=== PATIENT | male | born 1980 | race Caucasian/White ===

== ENCOUNTER 2020-03-11 01:07 | Outpatient (CLI) | payer OTHER, SELFPAY ==
[2020-03-11 16:30] LABS: SARS-CoV-2 RNA PCR Negative
== END 2020-03-11 01:08 | disposition home or self-care (01) ==
LOC: ANHCOVIDDT 01:07
PROVIDERS: Visit Provider Otolaryngology
DX: Z01.812 Encounter for preprocedural laboratory examination (principal); Z20.828 Contact with and (suspected) exposure to other viral communicable diseases
CPT/HCPCS: 87635; C9803; U0003

== ENCOUNTER 2020-03-14 01:41 | Day surgery (SDC) | payer OTHER, SELFPAY ==
[2020-03-02 10:02] VITALS: BMI 25.1
[2020-03-14] VITALS (8 sets, daily range): BP systolic 126–148; BP diastolic 81–96; PULSE 73–106; RESP 11–18; TEMP 36.1–36.6; O2SAT 93–100
[2020-03-14] MEDS: ACETAMINOPHEN 500 MG TABLET 1000 MG PO (06:37)
[2020-03-14] MEDS: LACTATED RINGERS 1,000 ML 30 ML IV CONT ×2 (06:45→09:26)
--- NOTE | 2020-03-14 07:15 | PM.IMHP ---
H&P: HPI History of Present Illness Date/Time: 03/14/20 07:15 Chief complaint: Chronic Sinusits/ Deviated Septum Narrative: Minor Duke is a 39 year old male with history of nasal polyp, deviated septum and sinusitis. Here for surgery Review of Systems Review of Systems: All systems reviewed & are unremarkable except as noted in HPI and below PMFSH Social History Social History Smoking status: Never smoker Alcohol intake: current Drinks per week: 1 Spiritual care concerns: No Meds Home Medications and Allergies Home Medications Medication Instructions Recorded Confirmed Type methylphenidate HCl 20 mg PO BID 03/02/20 03/14/20 History Allergies Allergy/AdvReac Type Severity Reaction Status Date / Time No Known Allergies Allergy Verified 03/14/20 06:26 Exam Narrative: Exam Narrative: Large left nasal polyp, right septal deviation Assessment and Plan Assessment and plan (1) Nasal polyp: Code(s): J33.9 - Nasal polyp, unspecified Status: Acute Assessment and Plan: Left antrochonal polyp, deviated septum and chronic sinusitis. Plan for septoplasty, left maxillary antrostomy, ethmoidectomy, polypectomy, bilateral aneudy bullosectomy. Refer to outpatient H&P for full details.
--- NOTE | 2020-03-14 07:23 | WPDANESEPPF ---
Anes - Initial Pre Proc Eval Procedure: Operation Date: 03/14/20 08:00 Proposed Procedures p Left Ethmoidectomy, Left Maxillary Antrostomy, Bilateral Turbinate Reduction - Ian Franklin MD s Septoplasty - Ian Franklin MD Date/Time: 03/14/20 07:23 Surgeon: Ian Franklin MD Pre Op Diagnosis: Chronic Sinusits/ Deviated Septum Patient Data Age: 39 Gender: M Height: 5 ft 10 in Weight: 74.7 kg Allergies Allergy/AdvReac Type Severity Reaction Status Date / Time No Known Allergies Allergy Verified 03/14/20 06:26 Home Medications Medication Instructions Recorded Confirmed Type methylphenidate HCl 20 mg PO BID 03/02/20 03/14/20 History Patient hx anesthesia problems: none Family hx anesthesia problems: none PENDING SALE TO [facility] Social History Social History Smoking status: Never smoker Alcohol intake: current Drinks per week: 1 Spiritual care concerns: No Anes - Eval Final PreProcedure Day of Procedure 03/14/20 07:23 Patient weight: normal Heart: regular rate and rhythm Lungs: clear to auscultation Airway: Mallampati scale class II Neurological: alert and oriented Last oral intake: >/= 8 hours ASA classification: I Emergent: no Anesthetic plan: proceed Anesthesia type and monitoring: general ETT and standard monitoring Informed Consent: The patient's anesthetic plan and its attendant risks and benefits were discussed with the patient/family/POA. Questions were solicited and answers provided to the satisfaction of the patient/family/POA.
[2020-03-14] MEDS: OXYMETAZOLINE HCL 0.05% NAS 15 ML BTL (*BKC) 1 SPRAY NASAL (07:48)
--- NOTE | 2020-03-14 07:56 | WPDHPUPDATE1 ---
History and Physical Update Update Date/Time: 03/14/20 07:56 History and Physical has been reviewed, including an updated exam of the patient. There are NO changes in the patient's condition. Risks, benefits, and alternatives have been discussed and questions answered. Patient agrees to proceed with procedure.
[2020-03-14] MEDS: ceFAZolin 2 GM/D5W 50 ML 2 GM/50 ML BAG IVPB (08:01)
[2020-03-14] MEDS: LIDO 1%/EPINEPHRINE 1:100,000 20 ML VIAL 3 ML INFILTRATE (08:23)
--- NOTE | 2020-03-14 09:18 | PM.PROC ---
Procedure Note - Detailed Date of procedure: 03/14/20 Pre-op diagnosis: Chronic Sinusits/ Deviated Septum Post-op diagnosis: same Procedure performed: Left maxillary antrostomy with tissue removal and anterior ethmoidectomy, bilateral aneudy bullosa, bilateral inferior turbinoplasty, septoplasty, image guidance Description of procedure: On the date of procedure the patient was met in the preoperative area and risk and benefits of the procedure reviewed with the patient as documented in the H&P and they elected to proceed with surgery. Patient was brought back to the operating room by the anesthesia team and underwent general endotracheal anesthesia. Once an adequate plane of anesthesia was obtained a timeout was performed to assure the patient identification the patient here to be performed were correct. They were.The patient was then prepped and draped in the normal fashion for endoscopic sinus surgery. The diffusion image guidance system was calibrated and used for the entire case. Afrin-soaked pledgets were placed in the nasal cavities bilaterally. The entire case was performed under endoscopic visualization. Nasal endoscopy was performed at the beginning of the case. 1% lidocaine with 1:100,000 epinephrine was then injected into the root of the middle turbinate and lateral nasal wall. The right side was narrowed due to septal deviation.? Thus, septoplasty was required.? A left hemitransfixion incision was made in the left caudal septum and a mucoperichondrial flap was elevated in the usual fashion. The flap was elevated under endoscopic visualization and the remainder of the case was performed with endoscopic assistance. Using a D-knife, an incision was made through the cartilaginous septum with care to preserve the appropriate caudal and dorsal ?L-strut? of cartilage. The cartilage was then disarticulated from the bony-cartilaginous junction and the deviated cartilage was removed. Further deviated bone and cartilage was removed from the maxillary crest and posterior bony septum with care to avoid injury to the mucoperichondrial flap using a combination of dissection and Ismael-Hitesh forceps. Once this was completed, the hemitransfixion incision was closed using simple interrupted 4-0 chromic suture. A quilting stitch to reapproximate the mucoperichondrial flaps was then placed using 4-0 plain gut suture on a Obed needle. Attention was then directed towards the left side. The middle turbinate was medialized and the osteomeatal complex was identified with a mary alice probe. A large antrochoanal polyp originating from the maxillary sinus was present and removed using a combination of microdebrider, forceps. This extended very far to the nasopharynx and oropharynx and was removed entirely. Once removed, the uncinate process was reflected anteriorly and removed using a combination of sharp and powered dissection. The maxillary antrostomy was then created and widened by identifying the natural ostia and opening the sinus with straight joselyn-cut forceps, backbiter, and microdebrider. Polyp tissue encountered was removed with microdebrider. The maxillary sinus was copiously irrigated and further polyp tissue removed. Continuing with the microdebrider, the anterior ethmoid bulla was opened. The right and left aneudy bullosa were then reduced using a freer elevator. No clinical evidence of CSF throughout the case.? With all sinuses opened and no remaining polyp disease appreciated, nasopore packing was placed in the ethmoid cavity on the left. Hemostasis was ensured. Lastly, the bilateral inferior turbiantes were reduced submucosally using 2mm microdebrider and then outfractured with a sayer elevator. This significantly opened the airway. Christopher splints were then placed to secure the septum in the midline.? At this point, the procedure was concluded. Care the patient was transferred back to the anesthesia team and the patient was awoke in the operating room and transferred back to the [facility]
[2020-03-14] MEDS: fentaNYL CITRATE INJ (*CRX) 100 MCG/2 ML VIAL 25 MCG IV PUSH ×2 (09:52→09:59)
[2020-03-14] MEDS: oxyCODONE HCL (*CRX) 5 MG TAB IR PO (11:16)
--- NOTE | 2020-03-14 11:18 | SUR.PHASEII ---
1110; PT AWAKE AND ALERT. C/O HEADACHE AT 4-10/17. CALLED DR POMPA. OXYCODONE ORDERED
--- NOTE | 2020-03-14 11:19 | SUR.PHASEII ---
PT DRESSED AND READY. WAITING FOR RIDE HOME.
== END 2020-03-14 11:46 | disposition home or self-care (01) ==
PROVIDERS: PCP Family Medicine; Visit Provider Otolaryngology
PROC: (CPT 31254; principal; 2020-03-14 08:00)
PROC: (CPT 30520; 2020-03-14 08:00)
DX: J32.9 Chronic sinusitis, unspecified (principal); J34.2 Deviated nasal septum; J33.8 Other polyp of sinus
CPT/HCPCS: 31254; 31267; 31240; 61782; 30520; 30140; 88305; 88311; A9270; J0690; J1100; J1170; J2250; J2405; J2704; J3010; J7120